=== PATIENT | female | born 1975 | race Caucasian/White ===

== ENCOUNTER 2021-03-20 16:10 | Emergency (ER) | payer OTHER, SELFPAY ==
[2021-03-20] VITALS (7 sets, daily range): BP systolic 117–163; BP diastolic 78–120; PULSE 47–71; RESP 16–20; TEMP 36.5–36.8; O2SAT 100
--- NOTE | ~2021-03-20 | CT_ITS ---
EXAMINATION: CT brain wo con DATE: 03/20/2021 19:11 INDICATION: Dizziness TECHNIQUE: Computed tomography (CT) of the head was performed without intravenous contrast. Sagittal and coronal reconstructions were performed. The mA was adjusted according to patient size. Iterative reconstruction technique was employed. The dose-length product was 605.33 mGy-cm. COMPARISON: None FINDINGS: Small region of encephalomalacia in the right parieto-occipital region consistent with chronic infarc t. No acute intracranial hemorrhage, acute infarction or abnormal extra axial fluid collection. Ventr icles are normal and symmetric. No mass/mass effect. The orbits, paranasal sinuses and mastoid air ce lls are normal. IMPRESSION: 1. Small region of encephalomalacia consistent with chronic infarct in the right parieto-occipital re gion. No acute intracranial process. Reviewed, dictated and finalized at location A. IMPRESSION: 1. Small region of encephalomalacia consistent with chronic infarct in the righ t parieto-occipital region. No acute intracranial process.
--- NOTE | ~2021-03-20 | XR_ITS ---
EXAMINATION: XR chest 2V DATE: 03/20/2021 17:41 INDICATION: Nausea, vomiting and dizziness 3 days after piercing infection TECHNIQUE: PA and lateral views of the chest were obtained. COMPARISON: None FINDINGS: The lungs are clear with no focal airspace opacities, pulmonary edema, pleural effusion or pneumothor ax. The cardiomediastinal silhouette is normal. 20 degrees upper thoracic levoscoliosis. IMPRESSION: 1. No acute cardiopulmonary disease. Reviewed, dictated and finalized at location A.
--- NOTE | 2021-03-20 17:16 | ECG_ITS ---
Measurements Intervals [place] Rate: 52 P: 45 PA: 130 QRS: 32 QRSD: 81 T: 17 QT: 441 QTc: 411 Interpretive Statements SINUS BRADYCARDIA BORDERLINE ST-T WAVE ABNORMALITY- INFERIOR LEADS BASELINE ARTIFACT- I, II, III, AVR BORDERLINE ECG Electronically Signed On 03-20-2021 17:59:59 CDT by Miguel Adame D.O.
[2021-03-20 17:41] LABS: Basophils Absolute Auto 0.1 K/mm3 (0.0-0.1); Basophils Percent Auto 0.5 % (0.2-1.2); Eosinophils Absolute Auto 0.1 K/mm3 (0-0.3); Hematocrit 43.8 % (37.0-47.0); Hemoglobin 14.4 g/dL (12.0-15.0); Immature Granulocyte Absolute 0.02 K/mm3 (0.00-0.031); Immature Granulocyte Percent A 0.2 % (0-0.5); Lymphocytes Absolute Auto 2.61 K/mm3 (0.9-3.2); Lymphocytes Percent Auto 28.4 % (18.3-44.2); Mean Corpuscular HGB Conc 32.9 g/dl (32-36); Mean Corpuscular Hemoglobin 32.1 pg (26-34); Mean Corpuscular Volume 97.6 fl (80-100); Mean Platelet Volume 9.4 fl (7.4-10.4); Monocytes Absolute Auto 0.8 K/mm3 (0.1-0.6); Monocytes Percent Auto 8.5 % (2.6-8.5); Neutrophils Absolute Auto 5.6 K/mm3 (1.3-6.7); Neutrophils Percent Auto 61.4 % (45.5-73.1); Platelet Count Result 283 k/mm3 (150-375); Red Blood Count 4.49 M/mm3 (4.2-5.4); Red Cell Distribution Width 12.2 % (11.5-14.5); White Blood Count 9.2 K/mm3 (4.5-10.0)
[2021-03-20 17:52] LABS: Alanine Aminotransferase 18 U/L (4-35); Albumin Level 4.3 g/dL (3.5-5.1); Alkaline Phosphatase 66 U/L (38-126); Anion Gap 4 mmol/L (8-16); Aspartate Amino Transferase 24 U/L (14-36); Bilirubin,Total 0.2 mg/dL (0.2-1.3); Blood Urea Nitrogen 12 mg/dL (7-17); Carbon Dioxide 30 mmol/L (22-30); Chloride 107 mmol/L (98-107); Estimated CRCL calculation 50 ml/min; Estimated Glomerular Filt Rate 59; Glucose 95 mg/dL (65-105); Potassium 4.1 mmol/L (3.4-5.0); Sodium 141 mmol/L (137-145)
--- NOTE | 2021-03-20 18:23 | PC.NURSE ---
patient taken to room by wheelchair without difficulty and in no distress, eating chips and walking.
--- NOTE | 2021-03-20 18:32 | PC.NURSE ---
called lab and spoke with Galdino to add on CBCD and BMP
--- NOTE | 2021-03-20 19:33 | PC.NURSE ---
Pt states she has had a partial hysterectomy
[2021-03-20] MEDS: LACTATED RINGERS 1,000 ML 999 ML IV CONT (19:35)
--- NOTE | 2021-03-20 19:52 | PC.NURSE ---
called Galidno in lab to add on Free t4 abd tsh
--- NOTE | 2021-03-20 20:34 | ED.DIZZY ---
HPI - Dizziness General Chief Complaint: Dizziness Stated Complaint: feeling faint, nausea Time Seen by Provider: 03/20/21 18:21 Source: patient Limitations: no limitations History of Present Illness HPI Narrative: 45-year-old female She has reported history of hypertension but multiple medication sensitivities and is apparently on a regimen where she takes metoprolol but only if she thinks she needs it She reports a 2 or 3-day history of dizziness and nausea Patient tells me that she would characterize the dizziness as feeling like she is possibly going to faint and that she has this sensation only when she is standing and walking or rarely when she is sitting. When she is lying down it is not exacerbated by turning her head or by rolling over. She does not have any auditory symptoms or any visual symptoms. She is currently lying down supine and asymptomatic She denies headache, chest pain She has noticed that her heart rate seems a little slow Related Data Allergies Allergy/AdvReac Type Severity Reaction Status Date / Time lisinopril Allergy Unknown Hard to Verified 03/20/21 18:09 Swallow Review of Systems Review of Systems: All systems reviewed & are unremarkable except as noted in HPI and below Constitutional: Constitutional: Reports no additional constitutional complaints, Denies chills, Denies fever(s), Denies headache(s) and Reports weakness Eyes: Eyes: Reports no additional eye complaints and Denies change in vision ENT: Denies vertigo, Reports dizziness, Denies headache(s) and Denies sore throat Cardiovascular: Cardiovascular: Denies chest pain, Denies dyspnea and Reports slow heart rate Respiratory: Respiratory: Denies cough and Denies dyspnea Gastrointestinal: Gastrointestinal: Denies abdominal pain, Denies diarrhea, Reports nausea and Denies vomiting Genitourinary: Genitourinary: Denies urinary frequency and Denies dysuria Musculoskeletal: Musculoskeletal: Denies deformity, Denies arthralgias, Denies joint swelling and Denies numbness Integumentary/Breasts: Skin/Breast: Denies rash and Denies wounds Neurologic: Reports dizziness, Denies headache(s), Denies focal weakness and Denies numbness Psychiatric: Psychiatric: Reports no additional psychiatric complaints Endocrine: Endocrine: Reports no additional endocrine complaints Hematologic/Lymphatic: Hematologic/Lymphatic: Reports no additional hematologic/lymphatic complaints Allergic/Immunologic: Allergic/Immunologic: Reports no additional allergic/immunologic complaints [facility] Family History Family History (Updated 05/04/17 @ 11:09 by DOCTOR UNKNOWN) Father Hypertension Patient's father is in good health Family history of primary malignant neoplasm of liver Family history of coronary artery disease Mother Family history of primary malignant neoplasm of liver, Onset Age: 62 Social History Social History Smoking status: Former smoker Second hand tobacco smoke exposure: Yes Smoking end date: 11/23/14 Alcohol intake: never Gender identity (if verbalized by the patient): Female Exam Const: General: cooperative, healthy appearing, no acute distress and alert Orientation/consciousness: patient oriented x3 (alert) HENMT: Head: normal to inspection, normocephalic and atraumatic Ears: external ears normal General nose exam: no epistaxis Eyes: Conjunctivae: conjunctivae normal Pupils: Equal, round and reactive pupils present EOM: EOMs intact bilaterally Neck: Neck: normal visual inspection, supple and no JVD Resp: Effort & Inspection: normal respiratory effort and not labored Auscultation: clear to auscultation bilaterally, no rales, no rhonchi, no wheezes and other (BS =) Cardio: Rate: regular rate and bradycardic Rhythm: regular rhythm Heart sounds: no murmurs GI: GI Palp: Yes Soft to palpation and No Tenderness to palpation present (GI) : General: Yes no CVA tenderness Skin: General
[2021-03-20 20:48] LABS: Free T4 Free Thyroxine 0.89 ng/mL (0.78-2.19)
== END 2021-03-20 21:21 | disposition home or self-care (01) ==
PROVIDERS: Emergency Medicine; Emergency Provider Emergency Medicine
DX: R42 Dizziness and giddiness (principal); I10 Essential (primary) hypertension; Z87.891 Personal history of nicotine dependence; R00.1 Bradycardia, unspecified; R94.31 Abnormal electrocardiogram [ECG] [EKG]
CPT/HCPCS: 36415; 70450; 71046; 80053; 84439; 84443; 85025; 93005; 96360; 99284; J7120

== ENCOUNTER 2021-04-09 16:14 | Emergency (ER) | payer OTHER, SELFPAY ==
[2021-04-09 16:47] VITALS: PULSE 98; RESP 16; TEMP 36.9; O2SAT 100
--- NOTE | 2021-04-09 18:02 | ED.SKABFB ---
HPI - Skin/Abscess/Foreign Bdy General Chief complaint: Skin/Abscess/Foreign Body Stated complaint: cellulitis, not improving Time Seen by Provider: 04/09/21 16:58 Source: patient Mode of arrival: ambulatory Limitations: no limitations History of Present Illness HPI narrative: Patient is a 45 year old female who presents reporting cellulitis to left ear. She reports piercing on 03/04 and reports having cellulitis and being treated with Bactrim, Cephalexin and Augmentin and most recent Clindamycin. She reports she feels left ear is still red and warm . She reports seeing multiple hospitals and urgent cares in the past month. She denies taking otc medications for pain at this time. MD complaint: other (cellulitis left ear) Related Data Allergies Allergy/AdvReac Type Severity Reaction Status Date / Time lisinopril Allergy Unknown Hard to Verified 03/20/21 18:09 Swallow Review of Systems Review of Systems: Narrative: CONSTITUTIONAL: Denies fever, chills, or sweats. EYES: Denies visual changes, redness, or discharge. ENT: Denies rhinorrhea, congestion, sore throat, or otalgia. Reports left ear warmth and tenderness. CARDIOVASCULAR: Denies chest pain, palpitations, or edema. RESPIRATORY: Denies cough or dyspnea. GASTROINTESTINAL: Denies abdominal pain, nausea, vomiting, or diarrhea. GENITOURINARY: Denies dysuria or hematuria. SKIN: Denies rash or itching. MUSCULOSKELETAL: Denies back pain, joint pain, or myalgia. NEUROLOGIC: Denies headache, numbness, dizziness, or weakness. PSYCHIATRIC: Denies anxiety or depression. [facility] Past Medical History Medical History CVA (cerebral vascular accident) per patient Surgical History Surgical History History of partial hysterectomy Family History Family History Father Hypertension Patient's father is in good health Family history of primary malignant neoplasm of liver Family history of coronary artery disease Mother Family history of primary malignant neoplasm of liver, Onset Age: 62 Social History Social History Smoking status: Current every day smoker Tobacco type: cigarettes Smoking end date: 11/23/14 Alcohol intake: current Alcohol use details: occasional Gender identity (if verbalized by the patient): Female Comments At the time of signature, I have reviewed and agree with nursing past medical, surgical, social, and family history unless otherwise noted. Please see nursing chart for further information. There is no relevant family history pertinent to the presenting complaint. Exam Narrative: Exam Narrative: GENERAL: Well-appearing, well-nourished, and in no acute distress. HEAD: Normocephalic, atraumatic. EYES: EOMI. No redness or drainage. ENT: Mucous membranes pink and moist. Nares clear. No rhinorrhea. TMs normal bilaterally. Throat normal. Uvula midline. No erythema or edema to left ear or face noted. NECK: AROM. Supple. No lymphadenopathy. CHEST: No respiratory distress. HEART: Regular rate and rhythm. No murmur appreciated. Normal peripheral pulses. EXTREMITIES: Normal range of motion. No edema. SKIN: Warm, dry, no rash. NEURO: No focal deficits. Alert and oriented x3. Gait steady. PSYCH: Normal affect. No signs of depression or anxiety. Course Vital Signs Vital signs: Vital Signs Temperature 36.9 C 04/09/21 16:47 Pulse Rate 98 04/09/21 16:47 Respiratory Rate 16 04/09/21 16:47 Pulse Oximetry 100 04/09/21 16:47 Temperature 36.9 C 04/09/21 16:47 Pulse Rate 98 04/09/21 16:47 Respiratory Rate 16 04/09/21 16:47 Pulse Oximetry 100 04/09/21 16:47 Reviewed MDM - Skin/Abscess/Foreign Bdy MDM Narrative Medical decision making narrative: Patient appears to have no edema
== END 2021-04-09 18:30 | disposition home or self-care (01) ==
PROVIDERS: Emergency Provider Nurse Practitioner
DX: Z71.1 Person with feared health complaint in whom no diagnosis is made (principal)
CPT/HCPCS: 99281